=== PATIENT | female | born 1985 | race Caucasian/White ===

== ENCOUNTER 2017-09-26 11:43 | Day surgery (SDC) | payer OTHER ==
[~2017-09-26] VITALS: Ht 172.7 cm; Wt 123.4 kg
[~2017-09-26 11:43] MED LIST: B-COMPLEX WITH1 EAC1; Fe C Tablet1 EACH; RIZATRIPTAN10 M1; SERT25
== END 2017-09-26 14:55 | disposition home or self-care (01) ==
LOC: ORSCSDS 11:43
PROVIDERS: Obstetrics & Gynecology Gynecology
PROC: 0UJD8ZZ Inspection of Uterus and Cervix, Via Natural or Artificial Opening Endoscopic (ICD-10-PCS; principal; 2017-09-26 13:00)
PROC: 0UDB7ZX Extraction of Endometrium, Via Natural or Artificial Opening, Diagnostic (ICD-10-PCS; principal; 2017-09-26 13:00)
DX: N94.6 Dysmenorrhea, unspecified (principal); N92.0 Excessive and frequent menstruation with regular cycle; N85.2 Hypertrophy of uterus; F41.9 Anxiety disorder, unspecified
CPT/HCPCS: 88305; J0690; J1100; J1885; J2405; J3010

== ENCOUNTER 2019-08-15 11:40 | Day surgery (SDC) | payer OTHER ==
[~2019-08-15] VITALS: Ht 172.7 cm; Wt 119.2 kg
[~2019-08-15 11:40] MED LIST changes: +Aviane1 EACH; +BUSP5; +CHOL10002; +IRON150C
[2019-08-15] MEDS ORDERED: LEVSOD25 (12:02)
== END 2019-08-15 14:04 | disposition home or self-care (01) ==
LOC: ORSCSDS 11:40
PROVIDERS: Obstetrics & Gynecology
PROC: 0UB74ZZ Excision of Bilateral Fallopian Tubes, Percutaneous Endoscopic Approach (ICD-10-PCS; principal; 2019-08-15 13:00)
DX: Z30.2 Encounter for sterilization (principal); N80.3 Endometriosis of pelvic peritoneum; F41.8 Other specified anxiety disorders; Z79.899 Other long term (current) drug therapy
CPT/HCPCS: 88302; J0171; J1100; J1885; J2001; J2250; J2370; J2405; J2704; J3010; J7120

== ENCOUNTER → 2019-10-07 | Outpatient (CLI) | payer OTHER ==
[~2019-10-07] MED LIST changes: +LEVSOD25
== END | disposition home or self-care (01) ==
LOC: LAB SHORT 07:59 → PLD 07:59
DX: L57.0 Actinic keratosis (principal); L81.9 Disorder of pigmentation, unspecified
CPT/HCPCS: 88305

== ENCOUNTER → 2019-10-18 | Outpatient (CLI) | payer OTHER ==
[2019-10-18 14:45] LABS: Source, Urine Clean Catch
[2019-10-18 16:24] LABS: Appearance, Urine Hazy (Clear); Bilirubin, Urine Neg (Neg); Blood, Urine Neg (Neg); Color, Urine Yellow (P-Yellow); Glucose Qualitative, Urine Neg (Neg); Ketones, Urine Neg (Neg); Leukocyte Esterase, Urine Neg (Neg); Nitrite, Urine Neg (Neg); Protein, Urine Neg (Neg); Specific Gravity, Urine 1.025 (1.003-1.022); Urobilinogen, Urine NORM (Normal)
[2019-10-18 17:01] LABS: Bacteria Many /hpf; Squamous Epithelial Cells Mod /hpf (Few); White Blood Cells, Urine 0-2 /hpf (0-5)
== END | disposition home or self-care (01) ==
LOC: LAB SHORT 14:44 → LAB 14:44
PROVIDERS: Internal Medicine
DX: R35.0 Frequency of micturition (principal)
CPT/HCPCS: 81001; 87086

== ENCOUNTER → 2020-02-05 | Outpatient (CLI) | payer OTHER ==
[2020-02-07 15:11] LABS: CHLAMYDIA TRACHOMATIS, NAA Negative (Negative); NEISSERIA GONORRHOEAE, NAA Negative (Negative)
== END | disposition home or self-care (01) ==
LOC: LAB 06:50 → LAB SHORT 06:50 → LAB FUT 02-02 15:15
PROVIDERS: Obstetrics & Gynecology
DX: Z11.3 Encounter for screening for infections with a predominantly sexual mode of transmission (principal)
CPT/HCPCS: 87491; 87591

== ENCOUNTER 2020-07-02 18:31 | Emergency (ER) | payer OTHER ==
[~2020-07-02] VITALS: Ht 172.7 cm; Wt 119.1 kg
[2020-07-02 19:16] LABS: BASOPHILS ABSOLUTE AUTO 0.02 K/mm3 (0.00-0.23); BASOPHILS PERCENT AUTO 0 % (0-2); EOSINOPHILS ABSOLUTE AUTO 0.02 K/mm3 (0.00-0.68); EOSINOPHILS PERCENT AUTO 0 % (0-6); Hematocrit 42.9 % (33.0-51.0); IMMATURE GRAN ABSOLUTE AUTO 0.01 K/mm3 (0.00-0.10); IMMATURE GRAN PERCENT AUTO 0 % (0-1); LYMPHOCYTES ABSOLUTE AUTO 0.94 K/mm3 (0.84-5.20); LYMPHOCYTES PERCENT AUTO 11 % (21-46); MONOCYTES ABSOLUTE AUTO 0.17 K/mm3 (0.16-1.47); MONOCYTES PERCENT AUTO 2 % (4-13); Mean Corpuscular HGB 28.9 pg (26.0-34.0); Mean Corpuscular HGB Conc 32.6 g/dL (31.5-36.5); Mean Corpuscular Volume 89 fL (80-100); Mean Platelet Volume 9.8 fL (9.1-12.4); NEUTROPHILS ABSOLUTE AUTO 7.07 K/mm3 (1.96-9.15); NEUTROPHILS PERCENT AUTO 86 % (41-73); Platelet Count 289 K/mm3 (150-400); RDW Coefficient Variation 12.3 % (11.7-14.2); RDW Standard Deviation 40.2 fL (35.1-46.3); Red Blood Cell Count 4.84 M/mm3 (3.80-5.20); White Blood Cell Count 8.23 K/mm3 (4.00-11.30)
[2020-07-02 19:38] LABS: Alanine Aminotransfer (ALT/SGP 27 U/L (12-78); Albumin, Blood 3.8 g/dL (3.4-5.0); Albumin/Globulin Ratio 0.9 (0.8-1.8); Alk Phos 88 U/L (50-136); Anion Gap 6 mmol/L (6-16); Aspartate Aminotrans (AST/SGOT 11 U/L (12-37); Bilirubin, Total 0.7 mg/dL (0.1-1.0); Blood Urea Nitrogen 11 mg/dL (8-24); Bun/Creatinine Ratio 16.9 (12.0-20.0); CO2, Blood 26 mmol/L (21-32); Calcium, Blood 8.9 mg/dL (8.5-10.1); Chloride, Blood 113 mmol/L (98-108); Creatinine, Blood 0.65 mg/dL (0.40-1.00); Globulin, Blood 4.2 g/dL (2.2-4.0); Glomerular Filtration Rate >60 (60-); Glucose, Blood 128 mg/dL (70-99); Potassium, Blood 3.9 mmol/L (3.5-5.5); Sodium, Blood 145 mmol/L (136-145)
== END 2020-07-03 00:09 | disposition home or self-care (01) ==
LOC: ER 18:31
PROVIDERS: Physician Assistant
DX: R51.9 Headache, unspecified (principal); Z79.899 Other long term (current) drug therapy
CPT/HCPCS: 70450; 70496; 70498; 80053; 85025; 96361; 96374-59; 96375-59; 99284-25; J1170; J1200; J3010; J7030; Q9967

== ENCOUNTER → 2021-07-22 | Outpatient (CLI) | payer OTHER | LOC: LAB 13:45 → LAB SHORT 13:45 | DX: N92.0 Excessive and frequent menstruation with regular cycle (principal) | CPT/HCPCS: 88305 ==

== ENCOUNTER 2021-12-23 11:04 | Day surgery (SDC) | payer OTHER ==
[~2021-12-23] VITALS: Ht 172.7 cm; Wt 103.3 kg
[~2021-12-23 11:04] MED LIST changes: +ALDACTONE100 MG PO; +ALPR.25 PO; +BUPR150ER PO; +DOXY100 PO; +EXCEDRIN MIGRAINE PO; +PROG100 PO; +QUDEXY PO; +RIZATRIPTAN10 MG PO; +TOPI100 PO
--- NOTE | 2021-12-23 12:28 | NUR ---
Patient up to Ambulate independently. Gait steady. History, Chart, Medications and Allergies reviewed before start of procedure.Pre-Op teaching done. Pt verbalizes understanding. Lungs clear T/O to Auscultation.
--- NOTE | 2021-12-23 14:56 | NUR ---
12/23/21 1456 Gaurang Cortes DC AT END OF CASE 800 FLUID IN BAG AND 350 IRRIGATION USED. APPROXIMATELY 450 URINE IN BAG.
[2021-12-23] MEDS ORDERED: Acetaminophen650 M1 PO (16:41)
[2021-12-23] MEDS ORDERED: IBUP400 PO (16:42)
--- NOTE | 2021-12-23 18:24 | NUR ---
NO VAGINAL DRAINAGE, PT UP TO BR WITH STANDBY ASSIST AND VOIDED CLEAR YELLOW URINE. ABD LAP SITES DRY AND INTACT X4. PT REPORTS PAIN ADEQUATELY CONTROLLED WITH PO MEDS- REPORTS LOWER ABD CRAMPING. PT EATING DINNER AT THIS TIME AND DENIES NAUSEA
--- NOTE | 2021-12-23 19:06 | NUR ---
AMBULATED IN [place] WITH STANDBY ASSIST. PT REPORTS PAIN IS 2/10. CARISSA SMALL AMOUNT OF DINNER WITHOUT NAUSEA
--- NOTE | 2021-12-23 19:31 | NUR ---
DISCHARGE PT AAOX4 AND PLEASANT. WALKED HALLS WITH NO ISSUES AND HAS BEEN VOIDING SINCE PROCEDURE. PT REPORTS PAIN LEVEL 2/10 ON ORAL PAIN MEDS AND THAT PAIN IS TOLERABLE AT THIS TIME. WENT OVER DISCHARGE INSTRUCTIONS WITH PT AND HER MOTHER. IV'S REMOVED BY DAY SHIFT RN ESTER. PT'S BELONGINGS GATHERED AND PT ABLE TO WALK INDEPENDENTLY TO THE CAR WITH HER MOTHER.
== END 2021-12-23 19:35 | disposition home or self-care (01) ==
LOC: ORD 11:04 → ORSCMMR 11:05 → ORD 12:30 → SURS 15:52 → ORD 19:35
DX: D25.9 Leiomyoma of uterus, unspecified (principal); N73.6 Female pelvic peritoneal adhesions (postinfective); N80.9 Endometriosis, unspecified; N94.6 Dysmenorrhea, unspecified; N93.8 Other specified abnormal uterine and vaginal bleeding; N71.9 Inflammatory disease of uterus, unspecified; E66.9 Obesity, unspecified; Z79.899 Other long term (current) drug therapy
CPT/HCPCS: A9270; J0690; J1100; J1885; J2250; J2370; J2405; J2704; J2765; J3010; J7120

== ENCOUNTER → 2022-04-19 | Outpatient (CLI) | payer OTHER ==
[~2022-04-19] MED LIST changes: +Acetaminophen650 M1 PO; +IBUP400 PO
[2022-04-19 18:45] LABS: BASOPHILS ABSOLUTE AUTO 0.04 K/mm3 (0.00-0.23); BASOPHILS PERCENT AUTO 0 % (0-2); EOSINOPHILS PERCENT AUTO 1 % (0-6); Hematocrit 42.2 % (33.0-51.0); Hemoglobin 14.2 g/dL (11.5-16.0); IMMATURE GRAN ABSOLUTE AUTO 0.03 K/mm3 (0.00-0.10); IMMATURE GRAN PERCENT AUTO 0 % (0-1); LYMPHOCYTES ABSOLUTE AUTO 2.33 K/mm3 (0.84-5.20); LYMPHOCYTES PERCENT AUTO 21 % (21-46); MONOCYTES ABSOLUTE AUTO 0.61 K/mm3 (0.16-1.47); MONOCYTES PERCENT AUTO 6 % (4-13); Mean Corpuscular HGB Conc 33.6 g/dL (31.5-36.5); Mean Corpuscular Volume 92 fL (80-100); Mean Platelet Volume 10.6 fL (9.1-12.4); NEUTROPHILS ABSOLUTE AUTO 7.79 K/mm3 (1.96-9.15); NEUTROPHILS PERCENT AUTO 71 % (41-73); Platelet Count 261 K/mm3 (150-400); RDW Coefficient Variation 12.3 % (11.7-14.2); RDW Standard Deviation 41.9 fL (35.1-46.3); Red Blood Cell Count 4.58 M/mm3 (3.80-5.20)
[2022-04-19 19:00] LABS: Percent Saturation 42.2 % (15.0-50.0)
[2022-04-19 19:05] LABS: Bun/Creatinine Ratio 13.3 (12.0-20.0); Calcium, Blood 9.3 mg/dL (8.5-10.1); Creatinine, Blood 0.83 mg/dL (0.40-1.00); Potassium, Blood 3.7 mmol/L (3.5-5.5); Thyroid Stimulating Hormone 1.24 uIU/mL (0.360-4.800)
== END | disposition home or self-care (01) ==
LOC: LAB SHORT 16:40
PROVIDERS: Internal Medicine
DX: E03.9 Hypothyroidism, unspecified (principal); D50.9 Iron deficiency anemia, unspecified
CPT/HCPCS: 80048; 82728; 83540; 83550; 84443; 85025